=== PATIENT | female | born 1975 | race Two or more races ===

== ENCOUNTER 2020-07-21 15:18 | Emergency (ER) | payer BC, OTHER ==
[~2020-07-21] VITALS: Ht 157.5 cm; Wt 72.6 kg
[2020-07-21 15:53] VITALS: BP 105/66
== END 2020-07-21 17:38 | disposition home or self-care (01) ==
LOC: ER 15:18
DX: S76.012A Strain of muscle, fascia and tendon of left hip, initial encounter (principal); X58.XXXA Exposure to other specified factors, initial encounter; Y93.89 Activity, other specified; Y92.89 Other specified places as the place of occurrence of the external cause; Y99.8 Other external cause status
CPT/HCPCS: 70450; 73030; 73502